=== PATIENT | female | born 1995 | race Caucasian/White ===

== ENCOUNTER 2018-05-30 10:48 | Emergency (ER) | payer BC ==
[2018-05-30] MEDS: ONDANSETRON (ODT) 4 MG TAB ODT (11:09)
== END 2018-05-30 12:37 | disposition home or self-care (01) ==
LOC: FTE 10:48
DX: B34.9 Viral infection, unspecified (principal); R40.2412 Glasgow coma scale score 13-15, at arrival to emergency department
CPT/HCPCS: 81025; 99283